=== PATIENT | male | born 1950 | race Caucasian/White ===

== ENCOUNTER 2017-06-16 07:00 | Day surgery (SDC) | payer MEDICARE, BC ==
[~2017-06-16] VITALS: Ht 182.9 cm; Wt 99.5 kg
--- NOTE | ~2017-06-16 | OR ---
PATIENT'S NAME: DENISE COATES [facility] AGE: 66 Y [address] ROOM: [address] [address] LOCATION: [facility] [place] ADMIT DATE: 06/16/2017 OR/Procedure Report DISCHARGE DATE: 06/17/2017 FAMILY PHYSICIAN: Heidi Yanez NP ATTENDING PHYSICIAN: Dominik Zee SURGEON: Dominik Zee MD SKEIN WASHER: Bright Santana PA-C. Bright Santana was necessary for retraction and visualization and hemostasis throughout the case. DATE OF PROCEDURE: 06/16/2017 CORRECTED BY CEB/06/17/2017 PREOPERATIVE DIAGNOSIS: Bilateral inguinal hernias. POSTOPERATIVE DIAGNOSIS: Bilateral inguinal hernias. PROCEDURES PERFORMED: Open bilateral inguinal hernia repair. FINDINGS: The patient had [id number] bilateral direct inguinal hernias. ESTIMATED BLOOD LOSS: Less than 50 mL. COMPLICATIONS: None. INDICATIONS: The patient is a 66-year-old male, who is a peritoneal dialysis patient, who presented with bilateral inguinal hernias. We discussed repair with the patient and the risks, benefits, and alternatives including, but not limited to bleeding, infection, peritoneal leak, mesh infections, and increased risk with early dialysis. We discussed recurrence as well as chronic pain. He understood the risks and elected to proceed. DESCRIPTION OF PROCEDURE: The patient was taken in to the Operating Room and was supine. He was given IV sedation and subsequently intubated. His abdomen and groins were prepped with ChloraPrep and sterilely draped. The right side was attended to first. An incision was created within the skin lines, carried through the subcutaneous tissues, and through Sony fascia using electrocautery. The aponeurosis of the external oblique was identified. This was incised sharply through the external ring. The hernia was immediately evident. The cord was dissected around circumferentially of the pubic tubercle. A Gillett drain was placed to aid in retraction. We skeletonized this cord and isolated the cord structures. We identified a very large cord lipoma and a ivrdwjpy-ad-yhcck hernia sac. There was fluid in the hernia sac. The cord lipoma and hernia sac were dissected around PATIENT'S NAME: DENISE COATES [facility] AGE: 66 Y [address] ROOM: [id number] [place], [place] [address] LOCATION: [facility] [place] ADMIT DATE: 06/16/2017 OR/Procedure Report DISCHARGE DATE: 06/17/2017 FAMILY PHYSICIAN: Heidi Yanez NP ATTENDING PHYSICIAN: Dominik Zee circumferentially up to the internal ring. These were reduced. An extra- large plug was placed into the defect and secured using 2-0 Prolene suture. The floor of the canal was inspected. There was some weakness present as well. A polypropylene mesh patch was placed on the floor of the canal, secured to the pubic tubercle along the shelving edge of inguinal ligament using 2-0 Prolene suture. This was secured anteriorly and medially to the conjoined tendon using interrupted 2-0 Prolene suture. The tails of the mesh were loosely approximated around the cord. The operative field was inspected. It appeared hemostatic. The aponeurosis of the external oblique was reapproximated with 2-0 Vicryl suture. Sony fascia was closed with 3-0 Vicryl suture. The skin was closed with 4-0 Monocryl suture. Steri-Strips and a sterile dressing were placed. Following this, the left side was attended to in a similar fashion. A skin line incision was created, and carried through the subcutaneous tissues and Sony fascia using electrocautery. The aponeurosis of the external oblique was incised through the external ring. The cord was dissected around circumferentially. A similar finding was present with a large cord lipoma and moderate-sized hernia sac. This was dissected around circumferentially up to the internal ring and reduced. An extra large ProLoop plug was placed into the defect and secured using 2-0 Prolene suture. A polypropylene mesh patch was placed on the floor of the canal, and secured to the pubic tubercle and shelving edge of the inguinal ligament using 2-0 Prolene suture. This was secured anteriorly and medially to the conjoined tendon using interrupted 2-0 Prolene sutures. The tails of the mesh were loosely approximated around the cord. The operative field was inspected and it appeared hemostatic. The aponeurosis of external oblique was reapproximated with 2-0 Vicryl suture. Closure of Sony fascia with 3-0 Vicryl suture. Skin was closed with 4-0 Monocryl suture. Steri-Strips and sterile dressings were placed. He tolerated this well. DOMINIK MD NICKI TEMPLETON/xin /[id number] CORRECTED BY AISHAB/06/17/2017 d: 06/17/17 0032 t: 06/30/17 0854, OPERATIVE SUMMARY
[~2017-06-16 07:00] MED LIST: AMOXICILLIN500 MG PO; BREO ELLIPTA 11 EACH INH; BUMETANIDE2 MG PO; CLARITIN10 MG PO; COREG12.5 MG PO; COZAAR50 MG PO; CPAP INH; DIOVAN320 MG PO; FENOFIBRIC ACID45 MG PO; FIBER500 MG PO; FLOMAX0.4 MG PO; FLONASE 50 MCG/16 GM NOSE; GABAPENTIN600 MG PO; GENTAMICIN SULF30 GM TOP; GLIPIZIDE10 MG PO; HUMIBID LA (MU600 MG PO; JANUVIA 100 MG100 MG PO; LEVEMIR FL100 UNIT/1 SUB-Q; LIPITOR40 MG PO; LOVAZA1 GM PO; MIRALAX17 GM PO; MUCINEX600 MG PO; NEURONTIN100 MG PO; NORCO 5-325 TA1 EACH PO; NORVASC10 MG PO; NOVOLOG100 UNIT/M SUB-Q; ROCALTROL0.25 MCG PO; SINGULAIR10 MG PO; STOOL SOFTENER1 EACH PO; THERA-VITE W/ B1 TAB PO; TRIAMCINOLONE454 GM TOP; TYLENOL EXTRA500 MG PO; ULTRAM50 MG PO; ZICAM NASAL SPRAY NOSE; ZYRTEC10 MG PO
[2017-06-16 07:44] LABS: BASOPHIL % 0.7 %; EOSINOPHIL # 0.2 K/uL (0.0-0.5); EOSINOPHIL % 2.9 %; HEMATOCRIT 34.5 % (37.0-53.0); HEMOGLOBIN 12.1 g/dL (11.0-16.0); IMMATURE GRANULOCYTE % 0.2 %; LYMPHOCYTE # 1.7 K/uL (0.8-4.0); LYMPHOCYTE % 26.9 %; MCH 32.5 pg (27.0-34.0); MCHC 35.1 gm/dL (32.0-36.5); MCV 92.7 fl (83.0-98.0); MONOCYTE # 0.5 K/uL (0.0-1.0); MONOCYTE % 7.8 %; MPV 10.2 fl (9.4-12.4); NEUTROPHIL # (ANC) 3.8 K/uL (1.4-9.0); NEUTROPHIL % 61.5 %; NRBC % 0 /100WBC (0-0.00); PLATELET COUNT 98 K/uL (150-450); RBC 3.72 M/uL (3.50-5.50); RDW-CV 12.4 % (11.9-14.6); WBC 6.1 K/uL (4.0-11.0)
[2017-06-16 07:54] LABS: ALBUMIN 3.7 gm/dL (3.5-5.0); ANION GAP 10.9 (10.0-19.0); CALCIUM 8.8 mg/dL (8.5-10.5); CREATININE 3.5 mg/dL (0.6-1.3); POTASSIUM 3.9 mMol/L (3.7-5.1); TOTAL BILIRUBIN 0.5 mg/dL (0.0-1.5); TOTAL PROTEIN 7.2 g/dL (6.0-8.4)
[2017-06-16] MEDS ORDERED: NORCO 5-325 TA1 EACH PO (14:25)
--- NOTE | 2017-06-17 03:24 | NUR ---
Pt arrived to unit at 1925 via cart from PACU.
--- NOTE | 2017-06-17 04:44 | NUR ---
Significant Event: AAOX3. ADA DIET, MOD SS. SBA WITH GB. PIV TO LEFT WRIST SL. Pt void x2 last NOC with a total of 300 out. 2 Byron administered at 0150. Cooperative with cares. Follow up:
--- NOTE | 2017-06-17 09:58 | NUR ---
D: PATIENT VITAL SIGNS STABLE PATIENT AFEBRILE. PATIENT UP IN ROOM TO BATHROOM TOLERATING EXCELLENT. PATIENT HAS VOIDED X TWO FOR TOTAL OF 575ML PATIENT STATES THAT HE FEELS LIKE HE IS EMPTYING HIS BLADDER. PATIENT DRESSINGS TO RAHAT INGUINAL HERNIA INTACT WITH SMALL AMOUNT OF DRAINAGE NOTED. DISCHARGE ORDERES RECEIVED TO DISCHARGE PATIENT TO HOME WITH DAUGHTER. I: REVIEWED DISHCARGE INSTRUCTIONS WITH PATIENT AND DAUGHTER R: PATIENT AND DAUGHTER STATE UNDERSTANDING OF INSTRUCTIONS, DENY ANY QUESTIONS P: CONTINUE WITH DISCHARGE ORDERED DISMISSAL GOALS MET.
== END 2017-06-17 08:55 | disposition disaster alternative care site (69) ==
LOC: GSDC 07:00 → GMSU 19:28 → GSDC 06-17 08:55
PROVIDERS: Surgery
PROC: 0YUA0JZ Supplement Bilateral Inguinal Region with Synthetic Substitute, Open Approach (ICD-10-PCS; principal; 2017-06-16)
DX: K40.20 Bilateral inguinal hernia, without obstruction or gangrene, not specified as recurrent (principal); K59.09 Other constipation; E78.00 Pure hypercholesterolemia, unspecified; I12.9 Hypertensive chronic kidney disease with stage 1 through stage 4 chronic kidney disease, or unspecified chronic kidney disease; E11.22 Type 2 diabetes mellitus with diabetic chronic kidney disease; N18.4 Chronic kidney disease, stage 4 (severe); M19.90 Unspecified osteoarthritis, unspecified site; N40.0 Benign prostatic hyperplasia without lower urinary tract symptoms; Z90.49 Acquired absence of other specified parts of digestive tract; Z98.890 Other specified postprocedural states; Z79.899 Other long term (current) drug therapy; Z87.891 Personal history of nicotine dependence; Z88.8 Allergy status to other drugs, medicaments and biological substances; Z79.4 Long term (current) use of insulin
CPT/HCPCS: C1781; J0690; J2001; J2175; J3010; J7030